=== PATIENT | male | born 1975 | race American Indian/Alaskan Native ===

== ENCOUNTER 2017-03-02 07:15 | Emergency (ER) | payer BC ==
[2017-03-02 07:44] LABS: Basophils % (Auto) 0.7 % (0.0-1.8); Eosinophils % (Auto) 6.2 % (0.0-4.3); Hematocrit 52.2 % (35.5-45.6); Hemoglobin 17.8 gm/dl (11.8-15.2); Mean Corpuscular HGB Conc 34 % (32-34); Mean Corpuscular Hemoglobin 32 pg (28-32); Mean Corpuscular Volume 94 fl (84-94); Platelet Count 187 K/mm3 (140-440); Red Blood Count 5.56 M/mm3 (3.65-5.03); White Blood Count 7.5 K/mm3 (4.5-11.0)
[2017-03-02 08:07] LABS: Anion Gap 18 mmol/L; Blood Urea Nitrogen 7 mg/dL (9-20); Calcium 8.9 mg/dL (8.4-10.2); Carbon Dioxide 24 mmol/L (22-30); Chloride 105.7 mmol/L (98-107); Glucose 94 mg/dL (75-100); Potassium 4.2 mmol/L (3.6-5.0); Sodium 143 mmol/L (137-145)
[2017-03-02 08:11] LABS: Bilirubin,Urine NEG (Negative); Blood,Urine NEG (Negative); Ketones,Urine NEG (Negative); Leukocyte Esterase,Urine NEG (Negative); Mucus,Urine FEW /HPF; Nitrite,Urine NEG (Negative); Protein,Urine <15 mg/dL mg/dL (Negative); RBC,Urine < 1.0 /HPF (0.0-6.0); Urobilinogen,Urine < 2.0 mg/dL (<2.0); WBC,Urine < 1.0 /HPF (0.0-6.0)
[2017-03-02] MEDS ORDERED: ZOFRAN IM ONE (11:05)
[2017-03-02] MEDS ORDERED: TORADOL IM ONE (11:05)
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
--- NOTE | 2017-03-02 12:18 | XRay Report ---
ABDOMINAL SERIES: History: Abdominal pain. Erect chest film shows no acute or significant changes involving the heart or lung moreno. There is no evidence of free air beneath the diaphragms. The gas pattern within the abdomen is unremarkable. There is no evidence of bowel dilatation, significant air-fluid levels, or masses. Organ shadows are unremarkable. IMPRESSION: Abdominal series within normal limits.
[2017-03-02 12:39] VITALS: BP 128/65
== END 2017-03-02 12:39 | disposition home or self-care (01) ==
LOC: ED 07:15
DX: B34.9 Viral infection, unspecified (principal); I10 Essential (primary) hypertension; F17.210 Nicotine dependence, cigarettes, uncomplicated
CPT/HCPCS: 36415; 74022; 80048; 81001; 85025; 93005; 93010; 96372; 99284; J1885; J2405